=== PATIENT | female | born 1970 | race Caucasian/White ===

== ENCOUNTER 2016-11-23 07:20 | Day surgery (SDC) | payer BC ==
[2016-11-18 10:52] LABS: HEMATOCRIT 37.7 % (36.0-48.0); HEMOGLOBIN 12.8 g/dL (12.0-16.0)
[2016-11-18 11:06] LABS: BUN (BLOOD UREA NITROGEN) 13 MG/DL (6-23); CALCIUM, SERUM 8.4 MG/DL (8.5-10.4); CHLORIDE, SERUM 105 MMOL/L (96-112); CO2 (CARBON DIOXIDE) 30 MMOL/L (24-34); CREATININE 0.61 MG/DL (0.55-1.02); GFR AFRICAN AMERICAN 124 ML/MIN (>=60); GFR NON AFRICAN AMERICAN 107 ML/MIN (>=60); GLUCOSE, SERUM 175 MG/DL (60-99); POTASSIUM, SERUM 3.5 MMOL/L (3.5-5.3); SODIUM, SERUM 143 MMOL/L (135-148)
--- NOTE | ~2016-11-23 | OP ---
Record Of Operation [facility] [address] [place]. [address] NAME: MARILEE NOEL : 66 STATUS : REG [facility] PAT#: [id number] AGE: 46 ADM/REG DATE : 11/23/16 MR#: [id number] REPORT SERV DATE: 11/23/16 DICTATED BY: FRANK MARTINEZ III DATE: 11/23/16 REPORT STATUS : Draft TRANSCRIBED BY: MODSaturnino DATE: 11/23/16 DATE OF PROCEDURE: 11/23/2016 PREOPERATIVE DIAGNOSIS: Torn posterior horn of the medial meniscus, left knee. 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 SURGICAL PROCEDURE PERFORMED: 1. Arthroscopic excision, complex tear posterior horn of the medial meniscus, left knee. 2. Abrasion and thermal chondroplasty, medial femoral condyle and patellofemoral joint. SURGEON: Frank Martinez M.D. SILK SCREEN OPERATOR: Yina David. ANESTHESIA: General. ANTIBIOTICS: Ancef 2 g. COMPLICATIONS: None. CRYSTALLOIDS: 800 mL. TOURNIQUET TIME: 60 minutes. PROCEDURE IN DETAIL: The patient was brought to the operative room, placed on the table in supine position, and general anesthesia was induced. Ancef 2 g was administered intravenously in the preop holding area. Pneumatic tourniquet was applied to the left upper thigh along with the arthroscopic leg alvarado. Left lower extremity was prepped and draped in the usual sterile fashion. It was exsanguinated with a 6-inch Esmarch. Tourniquet was inflated to 350 mmHg. Assuring good anesthesia, a standard anterolateral portal was provided. The arthroscope was inserted. The knee was inflated with sterile normal saline by means of arthroscopic pump. Suprapatellar pouch was visualized. It was free of any loose bodies. The patellofemoral joint had grade 3 changes to the median patellar facet and the femoral sulcus. Abrasion chondroplasty was carried out at this area with a 4.5 shaver through standard anteromedial portal. Contra wand was used to perform thermal chondroplasty to the zones as well. The intercondylar notch revealed some fraying of the anterior cruciate ligament, but otherwise normal. The lateral compartment revealed normal lateral meniscus, lateral femoral condyle, and lateral tibial plateau. Debridement of the infrapatellar fat pad was carried out with a 4.5 shaver for better visualization. The medial compartment had a complex tear at the posterior horn of the medial meniscus and more well-defined tear to the root, but was not repairable. This was debrided with a 4.5 shaver. Also the posterior horn was debrided with straight angled ducklings, contoured with a 4.5 shaver. Abrasion chondroplasty was carried out to the weightbearing zone of the medial femoral condyle, and a contra wand was used to perform thermal chondroplasty as well. It Record Of Operation [address] [address] NAME: MARILEE NOEL : 66 STATUS : REG [facility] PAT#: [id number] AGE: 46 ADM/REG DATE : 11/23/16 MR#: [id number] REPORT SERV DATE: 11/23/16 DICTATED BY: FRANK MARTINEZ III DATE: 11/23/16 REPORT STATUS : Draft TRANSCRIBED BY: MODL DATE: 11/23/16 was used to touch up the edge of the posterior horn medial meniscus as well. No further pathology was appreciated. The medial tibial plateau looked to be in good condition. Instrumentation was removed. Ports were closed. Knee was injected with 30 mL of 0.5% Marcaine solution and 80 mg of Depo-Medrol. Portals were closed with 4-0 nylon. Sterile dressings were applied. Tourniquet was released after 60 minutes. The patient tolerated the procedure well, brought to the recovery room in satisfactory condition. There were no intraoperative, postoperative, or anesthetic complications. All instrument, needle, sponge, and lap counts were correct. TB/MODL Frank Martinez III, M.D. / [id number] CC: Sean Mondragon III, ANDREW
[~2016-11-23 07:20] MED LIST: GLUCPH; IBU800 PO; LIPITOR40 PO; PRINZIDE1 TA1 PO
== END 2016-11-23 23:59 | disposition home or self-care (01) ==
LOC: MSC 07:20
PROVIDERS: Orthopaedic Surgery
PROC: 0SBD4ZZ Excision of Left Knee Joint, Percutaneous Endoscopic Approach (ICD-10-PCS; principal; 2016-11-23 09:15)
DX: S83.242A Other tear of medial meniscus, current injury, left knee, initial encounter (principal); M22.42 Chondromalacia patellae, left knee; I10 Essential (primary) hypertension; E11.9 Type 2 diabetes mellitus without complications; Z79.899 Other long term (current) drug therapy; Z79.84 Long term (current) use of oral hypoglycemic drugs; Z79.1 Long term (current) use of non-steroidal anti-inflammatories (NSAID)
CPT/HCPCS: 80048; 82962; 85014; 85018; 93005; A9270-GY; J0690; J1040; J2250; J2405; J3010; P9045